=== PATIENT | male | born 1970 ===

== ENCOUNTER 2024-05-07 05:30 | Day surgery (SDC) | payer OTHER ==
[2024-04-30 12:23] VITALS: BP 138/88
[~2024-05-07] VITALS: Ht 175.3 cm; Wt 97.5 kg
[~2024-05-07 05:30] MED LIST: ABATINEX680 MG PO; COZAAR25 MG PO; FOLIC ACID0.8 M1; LIPITOR80 MG PO; LOREEV XR2 MG PO; MAGNEBIND 4001 EAC1 PO; PEPCID AC20 MG PO; PLAVIX75 MG PO; RESTORIL30 M1 PO; TRAZODONE HCL150 MG PO; TRIJARDY XR 5-1 EACH PO; VITAMIN B-121000 MC4; VITAMIN D310 MCG/1 M; ZETIA10 MG PO
[2024-05-07] MEDS ORDERED: PROMETHAZINE HCL 25 MG/ML AMPUL IM PRN (07:45)
[2024-05-07] MEDS ORDERED: MEPERIDINE HCL/PF 25 MG/ML VIAL IM PRN (07:45)
[2024-05-07] MEDS ORDERED: BACTRIM DS TAB1 EACH PO (07:50)
[2024-05-07] MEDS ORDERED: DOLOGESIC 500-1 EACH PO (07:54)
[2024-05-07] MEDS ORDERED: CELEBREX200MG PO (07:55)
[2024-05-07] MEDS ORDERED: MORPHINE SULFATE 4 MG/ML VIAL IV ONE ×2 (08:10→09:10)
[2024-05-07] MEDS ORDERED: LIDOCAINE HCL 1%/EPINEPHRINE 20ML VIAL IJ ONE (09:15)
[2024-05-07] MEDS ORDERED: METHYLPREDNISOLONE ACETATE 80 MG/ML VIAL IU ONE (09:15)
[2024-05-07] MEDS ORDERED: BUPIVACAINE HCL/PF 0.25% 30ML VIAL InF ONE (09:15)
[2024-05-07] MEDS ORDERED: ISOPROPYL ALCOHOL 30 ML OUNCE TOP ONE (09:15)
[2024-05-07] MEDS ORDERED: VANCOMYCIN HCL 1,000 MG VIAL IV ONE (09:15)
== END 2024-05-07 11:10 | disposition home or self-care (01) ==
LOC: CIR.AMB 05:30
PROVIDERS: ATTEND Orthopaedic Surgery Sports Medicine
DX: M75.01 Adhesive capsulitis of right shoulder (principal); E11.9 Type 2 diabetes mellitus without complications; Z88.5 Allergy status to narcotic agent; Z88.0 Allergy status to penicillin